=== PATIENT | female | born 1990 | race Caucasian/White ===

== ENCOUNTER 2017-10-19 08:49 | Emergency (ER) | payer MEDICAID ==
[2017-10-19] MEDS ORDERED: Sodium Chloride 0.9% 1,000 ML IV STA (09:06)
--- NOTE | 2017-10-19 09:15 | ED PDOC ---
HPI: Neurologic - General Time Seen by Provider: 10/19/17 08:57 Chief Complaint (Provider): Shaking, twitching to bilat lower extremities Source: patient, EMS Exam Limitations: no limitations - History of Present Illness Timing/Duration: 1-3 hours (morning prior to arrival ) Allergies/Adverse Reactions: Allergies No Known Allergies Allergy (Verified 10/19/17 09:14) Home Medications: Ambulatory Orders Albuterol HFA [Ventolin HFA 90 mcg/actuation (8 g)] 2 puff IH Q4H #1 puff Additional Complaint(s): Vincenzo Whyte is a 27 year old female with a past medical history of Asthma brought to the ED by EMS after experiencing shaking and twitching to her bilateral lower extremities occurring this morning prior to arrival. The patient reports previous similar episodes for which she was seen at [facility] in September with CT of head and work up resulting as negative. The patient is complaining of associated palpitations. She denies headache. PMD: TBD Past Medical History Reviewed: Historical Data, Nursing Documentation, Vital Signs - Medical History PMH: Anxiety, Asthma, Bronchitis, Pneumonia Denies: Chronic Kidney Disease - Surgical History Surgical History: Appendectomy (2005) - Family History Family History: States: Unknown Family Hx - Immunization History Hx Tetanus Toxoid Vaccination: (UTD) Hx Influenza Vaccination: No Hx Pneumococcal Vaccination: No - Home Medications Home Medications: Ambulatory Orders Medication Instructions Recorded Albuterol HFA [Ventolin HFA 90 2 puff IH Q4H #1 puff 01/24/16 mcg/actuation (8 g)] - Allergies Allergies/Adverse Reactions: Allergies Allergy/AdvReac Type Severity Reaction Status Date / Time No Known Allergies Allergy Verified 10/19/17 09:14 Review of Systems ROS Statement: Except As Marked, All Systems Reviewed And Found Negative Cardiovascular: Positive for: Palpitations Neurological: Positive for: Other (shaking and twitching to bilateral lower extremities). Negative for: Headache Physical Exam - Reviewed Nursing Documentation Reviewed: Yes Vital Signs Reviewed: Yes - Physical Exam Appears: Positive for: Non-toxic, No Acute Distress Head Exam: Positive for: ATRAUMATIC, NORMOCEPHALIC Skin: Positive for: Normal Color, Warm, Dry Eye Exam: Positive for: Normal appearance, EOMI ENT: Positive for: Normal ENT Inspection Neck: Positive for: Normal, Painless ROM Cardiovascular/Chest: Positive for: Chest Non Tender, Tachycardia (with regular rhythm) Respiratory: Positive for: Normal Breath Sounds. Negative for: Respiratory Distress Gastrointestinal/Abdominal: Positive for: Normal Exam, Soft. Negative for: Tenderness Extremity: Positive for: Normal ROM. Negative for: Tenderness, Deformity, Swelling Neurologic/Psych: Positive for: Alert, Oriented, Other (shaking, trembling, and twitching to bilateral lower extremities). Negative for: Motor/Sensory Deficits - Laboratory Results Result Diagrams: 10/19/17 09:18 10/19/17 09:18 - ECG O2 Sat by Pulse Oximetry: 99 (RA) Pulse Ox Interpretation: Normal Medical Decision Making Medical Decision Making: Time: 08:57 Impression: * CMP * CBC (with differential) * Ativan 1 mg IVP * NS 1,000 ml IV 100 mls/hr * Reevaluation Scribe Attestation: Documented by Kori Canas, acting as a scribe for Goldy Martin MD. Provider Scribe Attestation: All medical record entries made by the Scribe were at my direction and personally dictated by me. I have reviewed the chart and agree that the record accurately reflects my personal performance of the history, physical exam, medical decision making, and the department course for this patient. I have also personally directed, reviewed, and agree with the discharge instructions and disposition. Disposition - Clinical Impression Clinical Impression: Anxiety attack - Patient ED Disposition Is Patient to be Admitted: No Counseled Patient/Family Regarding: Studies Performed, Diagnosis, Need For Followup, Rx Given - Disposition Referrals: [facility] [Outside] Disposition: Routine/Home Disposition Time: 12:17 Condition: FAIR Instructions: Generalized Anxiety Disorder (ED)
[2017-10-19 09:17] VITALS: TEMP 98
[2017-10-19 09:40] LABS: BASO % 0.5 % (0.0-2.0); EOS # 0.1 K/uL (0.0-0.7); EOS % 1.9 % (0.0-4.0); HEMATOCRIT 40.8 % (34.0-47.0); LYMPH % 25.2 % (20.0-40.0); MEAN CELL VOLUME 91.6 fl (81.0-99.0); MEAN CORPUSCULAR HGB CONC 32.8 g/dL (33.0-37.0); MEAN PLATELET VOLUME 9.9 fl (7.2-11.7); MONO # 0.8 K/uL (0.0-0.8); MONO % 10.3 % (0.0-10.0); NEUT # 4.8 K/uL (1.8-7.0); NEUT % 62.1 % (50.0-75.0); NRBC % 0.1 % (0.0-0.0); RED CELL DISTRIBUTION WIDTH 12.2 % (11.5-14.5); WHITE BLOOD COUNT 7.8 K/uL (4.8-10.8)
[2017-10-19 09:56] LABS: ALKALINE PHOSPHATASE 72 U/L (38-126); ALT/SGPT 27 U/L (9-52); AST/SGOT 21 U/L (14-36); BILIRUBIN,TOTAL 0.6 mg/dl (0.2-1.3); BLOOD UREA NITROGEN 13 mg/dl (7-17); CALCIUM 10.1 mg/dL (8.4-10.2); CARBON DIOXIDE 20 mmol/L (22-30); CHLORIDE 104 mmol/L (98-107); GFR AFRICAN-AMERICAN > 60; GLUCOSE,RANDOM 111 mg/dL (65-105); POTASSIUM 4.2 MMOL/L (3.6-5.0); SODIUM 145 mmol/l (132-148)
[2017-10-19 09:57] LABS: ALB/GLOB RATIO 1.4 (1.0-2.1)
[2017-10-19 10:24] VITALS: RESP 18
[2017-10-19 12:18] VITALS: O2SAT 99
[2017-10-19 12:40] VITALS: BP 112/68; PULSE 82
== END 2017-10-19 12:39 | disposition home or self-care (01) ==
LOC: H.ER 08:49
DX: F41.9 Anxiety disorder, unspecified (principal); J45.909 Unspecified asthma, uncomplicated; R25.3 Fasciculation; R00.2 Palpitations; J20.9 Acute bronchitis, unspecified
CPT/HCPCS: 80053; 81025; 85025; 96374; 99283; J2060; J7040

== ENCOUNTER 2018-01-14 08:59 | Emergency (ER) | payer MEDICAID ==
[2018-01-14 09:32] VITALS: O2SAT 97
--- NOTE | 2018-01-14 10:07 | ED PDOC ---
HPI: Abdomen Time Seen by Provider: 01/14/18 10:02 Chief Complaint (Nursing): Abdominal Pain Additional Complaint(s): 27 YO F w/ h/o of asthma, GERD and anxiety presents to the ED with abdominal pain, vomiting and diarrhea since yesterday. Abdominal pain and diarrhea started around 6:00 pm last night. Patient states she had 4-5 episodes of diarrhea yesterday, semi solid in consistency and had three episodes today. She also had 2 episodes of Non bloody non bilious vomiting. Has had multiple sick contacts with similar symptoms. Has been able to tolerate liquid PO. Patient is sexually active and does not use contraception, denies any vaginal pain or discharge. Denies Fever, chest pain, nausea or vomiting. PMH: GERD, Mild intermittent asthma, Anxiety PSH: Apendectomy Allergy: None SH: 1 pack of cig a week, occasional alcohol use, denies illicit drug use. Admits to unsafe sex PMD: Vanessa Bell M.D. ( [facility]) Past Medical History Vital Signs: Last Vital Signs Temp 97.0 F L 01/14/18 09:31 Pulse 60 01/14/18 09:31 Resp 16 01/14/18 09:31 BP 100/61 01/14/18 09:31 Pulse Ox 97 01/14/18 12:32 - Medical History PMH: Anxiety, Asthma, Bronchitis, Pneumonia Denies: Diabetes, Hepatitis, HIV, HTN, Chronic Kidney Disease, Seizures, Sexually Transmitted Disease - Surgical History Surgical History: Appendectomy (2005) - Family History Family History: States: Unknown Family Hx - Immunization History Hx Tetanus Toxoid Vaccination: (UTD) Hx Influenza Vaccination: No Hx Pneumococcal Vaccination: No - Home Medications Home Medications: Ambulatory Orders Medication Instructions Recorded Albuterol HFA [Ventolin HFA 90 2 puff IH Q4H #1 puff 01/23/ mcg/actuation (8 g)] - Allergies Allergies/Adverse Reactions: Allergies Allergy/AdvReac Type Severity Reaction Status Date / Time No Known Allergies Allergy Verified 10/19/17 09:14 Physical Exam - Physical Exam Appears: Positive for: No Acute Distress Head Exam: Positive for: NORMAL INSPECTION Skin: Positive for: Normal Color, Warm Respiratory: Positive for: Normal Breath Sounds. Negative for: Crackles, Rales , Rhonchi, Wheezing, Respiratory Distress Gastrointestinal/Abdominal: Positive for: Normal Exam, Bowel Sounds, Soft, Tenderness (epigastric tenderness) Back: Negative for: L CVA Tenderness, R CVA Tenderness Neurologic/Psych: Positive for: Alert, proposal manager writer II-XII - Laboratory Results Result Diagrams: 01/14/18 10:45 01/14/18 10:45 - ECG O2 Sat by Pulse Oximetry: 97 - Progress ED Course And Treament: CBC CMP Lipase U preg UA Urine Culture and sensitivity IVF Medical Decision Making Medical Decision Making: CBC, CMP and lipase was WNL - IVF given - Zofran and Pepcid received - U preg : negative - Patient appears to be doing better. Impression is viral gastroenteritis. Disposition - Clinical Impression Clinical Impression: Viral gastroenteritis - Patient ED Disposition Is Patient to be Admitted: No - Disposition Referrals: Faisal Bell MD [Family Provider] - Disposition: Routine/Home Disposition Time: 12:22 Condition: GOOD Additional Instructions: Encouraged hydration . F/U with PMD in 2-3 days Instructions: Viral Gastroenteritis Forms: [facility] ([place]) - POA Present On Arrival: None
[2018-01-14] MEDS ORDERED: Sodium Chloride 0.9% 1,000 ML IV SCH (10:15)
[2018-01-14 10:32] LABS: SQUAMOUS EPITHIAL 1 /hpf (0-5); URINE BILIRUBIN NEGATIVE (NEGATIVE); URINE BLOOD NEGATIVE (NEGATIVE); URINE CLARITY CLEAR (Clear); URINE COLOR STRAW (YELLOW); URINE GLUCOSE (UA) NEG (Normal); URINE LEUKOCYTE ESTERASE NEG Leu/uL (Negative); URINE PROTEIN NEGATIVE (NEGATIVE); URINE UROBILINOGEN 0.2-1.0 mg/dL (0.2-1.0)
[2018-01-14 11:02] LABS: ALB/GLOB RATIO 1.3 (1.0-2.1); ALBUMIN 4.1 g/dL (3.5-5.0); ALT/SGPT 26 U/L (9-52); AST/SGOT 19 U/L (14-36); BLOOD UREA NITROGEN 11 mg/dl (7-17); CALCIUM 9.3 mg/dL (8.4-10.2); GFR AFRICAN-AMERICAN > 60; GFR NON-AFRICAN AMERICAN > 60; LIPASE 63 U/L (23-300)
[2018-01-14 11:20] LABS: BASO % 0.4 % (0.0-2.0); EOS # 0.1 K/uL (0.0-0.7); EOS % 2.4 % (0.0-4.0); HEMOGLOBIN 12.6 g/dL (12.0-16.0); LYMPH # 1.4 K/uL (1.0-4.3); LYMPH % 33.9 % (20.0-40.0); MEAN CELL VOLUME 90.6 fl (81.0-99.0); MEAN CORPUSCULAR HEMOGLOBIN 30.5 pg (27.0-31.0); MEAN CORPUSCULAR HGB CONC 33.7 g/dL (33.0-37.0); MONO # 0.4 K/uL (0.0-0.8); MONO % 10.1 % (0.0-10.0); NEUT # 2.2 K/uL (1.8-7.0); NEUT % 53.2 % (50.0-75.0); NRBC % 0.2 % (0.0-0.0); RBC 4.14 Mil/uL (3.80-5.20); RED CELL DISTRIBUTION WIDTH 12.8 % (11.5-14.5); WHITE BLOOD COUNT 4.2 K/uL (4.8-10.8)
[2018-01-14 18:33] VITALS: BP 112/68; PULSE 81; RESP 14; TEMP 98
== END 2018-01-14 12:33 | disposition home or self-care (01) ==
LOC: H.ER 08:59
DX: A08.4 Viral intestinal infection, unspecified (principal); K21.9 Gastro-esophageal reflux disease without esophagitis
CPT/HCPCS: 80053; 81003; 81025; 83690; 85025; 87086; 87206; 96374; 96375; 99283; J2405; J7040

== ENCOUNTER 2018-02-26 09:01 | Emergency (ER) | payer MEDICAID, OTHER ==
[2018-02-26 09:15] VITALS: TEMP 97; O2SAT 98
[2018-02-26] MEDS ORDERED: Albuterol 0.083% Inhal Sol (2.5 mg/3 mL) UD INH ONE (10:19)
[2018-02-26] MEDS ORDERED: Albuterol 0.083% Inhal Sol (2.5 mg/3 mL) UD ONE (10:29)
--- NOTE | 2018-02-26 10:35 | ED PDOC ---
HPI: SOB/CHF/COPD Time Seen by Provider: 02/26/18 09:05 Chief Complaint (Nursing): Shortness Of Breath Chief Complaint (Provider): Shortness Of Breath History Per: Patient History/Exam Limitations: no limitations Onset/Duration Of Symptoms: Mins (prior to arrival) Current Symptoms Are (Timing): Better Additional Complaint(s): 28 year old female with a history of anxiety and panic attacks presents to the ED shaking and with shortness of breath. Patient reports symptoms are consistent with her previous panic attacks. Denies fever, chills and vomiting. PMD: Dr. Faisal Bell MD Past Medical History Reviewed: Historical Data, Nursing Documentation, Vital Signs Vital Signs: Last Vital Signs Temp 97 F L 02/26/18 09:14 Pulse 72 02/26/18 13:06 Resp 18 02/26/18 13:06 BP 124/76 02/26/18 13:06 Pulse Ox 98 02/26/18 13:06 - Medical History PMH: Anxiety, Asthma, Bronchitis, Pneumonia Denies: Diabetes, Hepatitis, HIV, HTN, Chronic Kidney Disease, Seizures, Sexually Transmitted Disease - Surgical History Surgical History: Appendectomy (2005) - Family History Family History: States: Unknown Family Hx - Social History Current smoker - smoking cessation education provided: Yes (4 cigarettes a day) Ex-Smoker (has not smoked in the last 12 months): No Alcohol: Social Drugs: Denies - Immunization History Hx Tetanus Toxoid Vaccination: (UTD) Hx Influenza Vaccination: No Hx Pneumococcal Vaccination: No - Home Medications Home Medications: Ambulatory Orders Medication Instructions Recorded Albuterol HFA [Ventolin HFA 90 2 puff IH Q4H #1 puff 01/24/16 mcg/actuation (8 g)] - Allergies Allergies/Adverse Reactions: Allergies Allergy/AdvReac Type Severity Reaction Status Date / Time No Known Allergies Allergy Verified 10/19/17 09:14 Review of Systems ROS Statement: Except As Marked, All Systems Reviewed And Found Negative Constitutional: Negative for: Fever, Chills Respiratory: Positive for: Shortness of Breath Gastrointestinal: Negative for: Vomiting Physical Exam - Reviewed Nursing Documentation Reviewed: Yes Vital Signs Reviewed: Yes - Physical Exam Appears: Positive for: Non-toxic, No Acute Distress Head Exam: Positive for: ATRAUMATIC, NORMOCEPHALIC Skin: Positive for: Normal Color, Warm, Dry Eye Exam: Positive for: EOMI, Normal appearance, PERRL Neck: Positive for: Normal, Painless ROM, Supple Cardiovascular/Chest: Positive for: Regular Rate, Rhythm. Negative for: Murmur Respiratory: Positive for: Normal Breath Sounds. Negative for: Respiratory Distress Gastrointestinal/Abdominal: Positive for: Normal Exam, Soft Extremity: Positive for: Normal ROM. Negative for: Deformity Neurologic/Psych: Positive for: Alert, Oriented. Negative for: Motor/Sensory Deficits - Laboratory Results Result Diagrams: 02/26/18 10:34 02/26/18 10:34 - ECG O2 Sat by Pulse Oximetry: 98 (RA) Pulse Ox Interpretation: Normal Medical Decision Making Medical Decision Making: Time; 09:43 Initial Plan: --CMP --CBC with differentials --Albuterol 0.083% 2.5 mg INH --Peak flow pre/post Time: 10:33 --Patient reports an improvement of symptoms after she was given oxygen. pt aware of blood test results and will follow up as an outpatient. Scribe Attestation: Documented by Mery Garber, acting as a scribe for Avtar Gerard MD Provider Scribe Attestation: All medical record entries made by the Scribe were at my direction and personally dictated by me. I have reviewed the chart and agree that the record accurately reflects my personal performance of the history, physical exam, medical decision making, and the department course for this patient. I have also personally directed, reviewed, and agree with the discharge instructions and disposition. Disposition - Clinical Impression Clinical Impression: Anxiety - Patient ED Disposition Is Patient to be Admitted: No Counseled Patient/Family Regarding: Studies Performed, Diagnosis, Need For Followup - Disposition Disposition: Routine/Home Disposition Time: 11:35 Condition: IMPROVED Additional Instructions: follow up with your primary doctor in 1-2 days return to the ED with any worsening or concerning symptoms Instructions: Anxiety, Adult (DC) Forms: [facility] (Swedish)
[2018-02-26 11:01] LABS: BASO % 0.5 % (0.0-2.0); EOS # 0.1 K/uL (0.0-0.7); EOS % 1.9 % (0.0-4.0); HEMOGLOBIN 12.9 g/dL (12.0-16.0); LYMPH # 1.5 K/uL (1.0-4.3); LYMPH % 43.8 % (20.0-40.0); MEAN CELL VOLUME 90.6 fl (81.0-99.0); MEAN CORPUSCULAR HEMOGLOBIN 30.8 pg (27.0-31.0); MONO # 0.4 K/uL (0.0-0.8); MONO % 11.9 % (0.0-10.0); NEUT # 1.4 K/uL (1.8-7.0); NEUT % 41.9 % (50.0-75.0); NRBC % 0.1 % (0.0-0.0); RBC 4.19 Mil/uL (3.80-5.20); RED CELL DISTRIBUTION WIDTH 12.2 % (11.5-14.5); WHITE BLOOD COUNT 3.3 K/uL (4.8-10.8)
[2018-02-26 11:06] LABS: ALB/GLOB RATIO 1.2 (1.0-2.1); ALBUMIN 4.4 g/dL (3.5-5.0); ALT/SGPT 32 U/L (9-52); AST/SGOT 20 U/L (14-36); GFR AFRICAN-AMERICAN > 60; GFR NON-AFRICAN AMERICAN > 60
[2018-02-26 11:15] LABS: BLOOD UREA NITROGEN 7 mg/dl (7-17); CALCIUM 9.2 mg/dL (8.4-10.2)
[2018-02-26 13:07] VITALS: BP 124/76; PULSE 72; RESP 18
== END 2018-02-26 12:53 | disposition home or self-care (01) ==
LOC: H.ER 09:01
DX: F41.9 Anxiety disorder, unspecified (principal); F17.210 Nicotine dependence, cigarettes, uncomplicated; R06.02 Shortness of breath

== ENCOUNTER 2018-05-02 09:54 | Emergency (ER) | payer SELFPAY ==
[2018-05-02 10:03] VITALS: BMI 23.1
[2018-05-02 10:05] VITALS: BP 109/72; PULSE 79; RESP 16; TEMP 98.3; O2SAT 98
[2018-05-02] MEDS ORDERED: Albuterol-Ipratrop 3 mg / 0.5 (3 ml) UD INH STA (10:57)
[2018-05-02] MEDS ORDERED: Albuterol-Ipratrop 3 mg / 0.5 (3 ml) UD ONE (11:10)
--- NOTE | 2018-05-02 13:09 | ED PDOC ---
History of Present Illness History of Present Illness: 28 year old female with a history of asthma presents to the ED with asthma exacerbation onset a week associated intermittent wheezing and shortness of breath. She reports her asthma is exacerbated by the blowing fan at work. Patient decided not to go to work today because she was experiencing shortness of breath. She uses her albuterol pump at home as indicated. Patient denies chest pain, fever, or any other medical complaints. PMD: Dr. Faisal Bell HPI: Influenza Time Seen by Provider: 05/02/18 10:18 Chief Complaint: Cough, Cold, Congestion Chief Complaint (Provider): Asthma History Per: Patient Exam Limitations: no limitations Onset/Duration Of Symptoms: Days (x1 week) Past Medical History Reviewed: Historical Data, Nursing Documentation, Vital Signs Vital Signs: Last Vital Signs Temp 98.3 F 05/02/18 10:04 Pulse 79 05/02/18 10:04 Resp 16 05/02/18 10:04 BP 109/72 05/02/18 10:04 Pulse Ox 98 05/02/18 10:04 - Medical History PMH: Anxiety, Asthma, Bronchitis, Pneumonia Denies: Diabetes, Hepatitis, HIV, HTN, Chronic Kidney Disease, Seizures, Sexually Transmitted Disease - Surgical History Surgical History: Appendectomy (2005) - Family History Family History: States: Unknown Family Hx - Social History Current smoker - smoking cessation education provided: Yes (Light smoker <10 cigarettes a day) Ex-Smoker (has not smoked in the last 12 months): No Alcohol: Other (yes) Drugs: Denies - Immunization History Hx Tetanus Toxoid Vaccination: (UTD) Hx Influenza Vaccination: No Hx Pneumococcal Vaccination: No - Home Medications Home Medications: Ambulatory Orders Medication Instructions Recorded Albuterol HFA [Ventolin HFA 90 2 puff IH Q4H #1 puff 03/14/16 mcg/actuation (8 g)] Albuterol HFA [Ventolin HFA 90 2 puff IH Q4 PRN #1 inh 05/02/18 mcg/actuation (8 g)] Fluticasone/Salmeterol 250/50 1 puff IH Q12 #1 inh 05/02/18 [Advair Diskus] Prednisone 50 mg PO DAILY #5 tablet 05/02/18 - Allergies Allergies/Adverse Reactions: Allergies Allergy/AdvReac Type Severity Reaction Status Date / Time No Known Allergies Allergy Verified 10/19/17 09:14 Review of Systems ROS Statement: Except As Marked, All Systems Reviewed And Found Negative Constitutional: Negative for: Fever Cardiovascular: Negative for: Chest Pain Respiratory: Positive for: Wheezing Physical Exam - Reviewed Nursing Documentation Reviewed: Yes Vital Signs Reviewed: Yes - Physical Exam Appears: Positive for: Non-toxic, No Acute Distress Head Exam: Positive for: ATRAUMATIC, NORMOCEPHALIC Skin: Positive for: Normal Color, Warm, Dry Eye Exam: Positive for: Normal appearance, EOMI, PERRL ENT: Positive for: Normal ENT Inspection Neck: Positive for: Normal, Painless ROM, Supple Cardiovascular/Chest: Positive for: Regular Rate, Rhythm. Negative for: Murmur Respiratory: Positive for: Normal Breath Sounds. Negative for: Respiratory Distress Gastrointestinal/Abdominal: Positive for: Normal Exam, Soft. Negative for: Tenderness Back: Positive for: Normal Inspection Extremity: Positive for: Normal ROM (upper and lower extremities). Negative for : Pedal Edema, Deformity Neurologic/Psych: Positive for: Alert, Oriented (x3). Negative for: Motor/ Sensory Deficits Medical Decision Making Medical Decision Making: Time: 10:57 Impression: Asthma exacerbation Initial Plan: --EKG --Duoneb 3mg/0.5 mg (3ml) UD 3ml INH --prednisoneTab 60 mg PO --Peak flow pre/post EKG improved after administering medication. On evaluation, patient is doing much better and states she would like to go home. Patient medically cleared for discharge home and advised to follow up with PMD in 1-2 days. Scribe Attestation: Documented by Elida Canas, acting as a scribe for Bertha Monroy MD Provider Scribe Attestation: All medical record entries made by the Scribe were at my direction and personally dictated by me. I have reviewed the chart and agree that the record accurately reflects my personal performance of the history, physical exam, medical decision making, and the department course for this patient. I have also personally directed, reviewed, and agree with the discharge instructions and disposition. - ECG O2 Sat by Pulse Oximetry: 98 (RA) Pulse Ox Interpretation: Normal - Progress Re-evaluation Time: 13:00 Condition: Re-examined, Improved Disposition - Clinical Impression Clinical Impression: Asthma attack - Patient ED Disposition Is Patient to be Admitted: No Counseled Patient/Family Regarding: Studies Performed, Diagnosis, Need For Followup - Disposition Referrals: Faisal Bell MD [Family Provider] - Disposition: Routine/Home Disposition Time: 13:07 Condition: GOOD Additional Instructions: take your medications as instructed. follow up with your PCP in 2-3 days. Prescriptions: Albuterol HFA [Ventolin HFA 90 mcg/actuation (8 g)] 2 puff IH Q4 PRN #1 inh PRN Reason: Wheezing Fluticasone/Salmeterol 250/50 [Advair Diskus] 1 puff IH Q12 #1 inh Prednisone 50 mg PO DAILY #5 tablet Instructions: Asthma in Adults
--- NOTE | 2018-05-03 08:31 | CARD ---
APPROVED REPORT EKG Measurement Heart [id number] CT [id number] <Conclusion> Normal sinus rhythm with sinus arrhythmia Normal ECG
== END 2018-05-02 13:18 | disposition home or self-care (01) ==
LOC: H.ER 09:54
DX: J45.901 Unspecified asthma with (acute) exacerbation (principal); F41.9 Anxiety disorder, unspecified; F17.210 Nicotine dependence, cigarettes, uncomplicated

== ENCOUNTER 2018-05-08 10:53 | Emergency (ER) | payer OTHER ==
[2018-05-08 10:58] VITALS: BMI 22.3
[2018-05-08 10:59] VITALS: BP 107/65; PULSE 74; RESP 16; TEMP 98.2; O2SAT 100
--- NOTE | 2018-05-08 11:50 | ED PDOC ---
HPI: General Adult Time Seen by Provider: 05/08/18 11:40 Chief Complaint (Nursing): Rib Injury Chief Complaint (Provider): back pain History Per: Patient (28 y/o female here with lower back pain radiating to upper thighs associated with intermittent numbness. Notes pain worse after recent asthma exacerbation last week. Notes additional exacerbation with lifting pot after cooking. Additional bilateral chest wall tenderness noted after asthma exacerbation. ) Past Medical History Reviewed: Historical Data, Nursing Documentation, Vital Signs Vital Signs: Last Vital Signs Temp 98.2 F 05/08/18 10:58 Pulse 74 05/08/18 10:58 Resp 16 05/08/18 10:58 BP 107/65 05/08/18 10:58 Pulse Ox 100 05/08/18 11:50 - Medical History PMH: Anxiety, Asthma, Bronchitis, Pneumonia Denies: Diabetes, Hepatitis, HIV, HTN, Chronic Kidney Disease, Seizures, Sexually Transmitted Disease - Surgical History Surgical History: Appendectomy (2005) - Family History Family History: States: Unknown Family Hx - Immunization History Hx Tetanus Toxoid Vaccination: (UTD) Hx Influenza Vaccination: No Hx Pneumococcal Vaccination: No - Home Medications Home Medications: Ambulatory Orders Medication Instructions Recorded Albuterol HFA [Ventolin HFA 90 2 puff IH Q4H #1 puff //16 mcg/actuation (8 g)] Albuterol HFA [Ventolin HFA 90 2 puff IH Q4 PRN #1 inh 05/02/18 mcg/actuation (8 g)] Fluticasone/Salmeterol 250/50 1 puff IH Q12 #1 inh 05/02/18 [Advair Diskus] Prednisone 50 mg PO DAILY #5 tablet 05/02/18 Naproxen 375 mg PO Q8 PRN #21 tablet 05/08/18 - Allergies Allergies/Adverse Reactions: Allergies Allergy/AdvReac Type Severity Reaction Status Date / Time No Known Allergies Allergy Verified 10/19/17 09:14 Review of Systems ROS Statement: Except As Marked, All Systems Reviewed And Found Negative Physical Exam - Reviewed Nursing Documentation Reviewed: Yes Vital Signs Reviewed: Yes - Physical Exam Appears: Positive for: Well, Non-toxic, No Acute Distress Head Exam: Positive for: ATRAUMATIC, NORMAL INSPECTION, NORMOCEPHALIC Skin: Positive for: Normal Color, Warm, DRY Eye Exam: Positive for: EOMI, Normal appearance, PERRL ENT: Positive for: Normal ENT Inspection Neck: Positive for: Normal, Painless ROM Cardiovascular/Chest: Positive for: Regular Rate, Rhythm Respiratory: Positive for: CNT, Normal Breath Sounds Gastrointestinal/Abdominal: Positive for: Normal Exam, Soft Back: Positive for: Normal Inspection, Vertebral Tenderness (paralumbar tenderness bilateral) Extremity: Positive for: Normal ROM Neurologic/Psych: Positive for: Alert, Oriented - Laboratory Results Urine POC: Negative - ECG O2 Sat by Pulse Oximetry: 100 Disposition - Clinical Impression Clinical Impression: Back pain, Sciatica - Patient ED Disposition Is Patient to be Admitted: No - Disposition Disposition: Routine/Home Disposition Time: 11:51 Condition: STABLE Prescriptions: Naproxen 375 mg PO Q8 PRN #21 tablet PRN Reason: Pain, Moderate (4-7) Instructions: Sciatica (DC) Forms: [facility] School/Work Excuse
== END 2018-05-08 12:11 | disposition home or self-care (01) ==
LOC: H.ER 10:53
DX: M54.30 Sciatica, unspecified side (principal); F41.9 Anxiety disorder, unspecified

== ENCOUNTER 2018-05-28 08:33 | Emergency (ER) | payer OTHER ==
[2018-05-28 08:36] VITALS: BMI 23.1
[2018-05-28] MEDS ORDERED: Albuterol-Ipratrop 3 mg / 0.5 (3 ml) UD IH STA (09:45)
--- NOTE | 2018-05-28 10:18 | ED PDOC ---
HPI: General Adult Time Seen by Provider: 05/28/18 08:50 Chief Complaint (Nursing): Dental Pain Chief Complaint (Provider): Dental Pain and Cold History Per: Patient History/Exam Limitations: no limitations Onset/Duration Of Symptoms: Days (2x) Current Symptoms Are (Timing): Still Present Additional Complaint(s): 28 year old female with a history of asthma presents to the ED complaining of top right tooth pain and cold onset for 2 days. Patient states she used Oral Gel for her tooth and has sore throat. Her appetite has decreased also. She states she has watery eyes, sweats, nasal congestion, cough and is wheezing. She denies chest pain or abdominal pain. PMD: Faisal Bell Past Medical History Reviewed: Historical Data, Nursing Documentation, Vital Signs Vital Signs: Last Vital Signs Temp 98.9 F 05/28/18 08:36 Pulse 98 H 05/28/18 08:36 Resp 16 05/28/18 08:36 BP 106/52 L 05/28/18 08:36 Pulse Ox 96 05/28/18 10:25 - Medical History PMH: Anxiety, Asthma, Bronchitis, Pneumonia Denies: Diabetes, Hepatitis, HIV, HTN, Chronic Kidney Disease, Seizures, Sexually Transmitted Disease - Surgical History Surgical History: Appendectomy (2005) - Family History Family History: States: Unknown Family Hx - Social History Current smoker - smoking cessation education provided: Yes (Light Smoker < 10 Cigarettes Daily) Alcohol: Social Drugs: Denies - Immunization History Hx Tetanus Toxoid Vaccination: (UTD) Hx Influenza Vaccination: No Hx Pneumococcal Vaccination: No - Home Medications Home Medications: Ambulatory Orders Medication Instructions Recorded Albuterol HFA [Ventolin HFA 90 2 puff IH Q4H #1 puff //16 mcg/actuation (8 g)] Albuterol HFA [Ventolin HFA 90 2 puff IH Q4 PRN #1 inh 05/02/18 mcg/actuation (8 g)] Fluticasone/Salmeterol 250/50 1 puff IH Q12 #1 inh 05/02/18 [Advair Diskus] Prednisone 50 mg PO DAILY #5 tablet 05/02/18 Naproxen 375 mg PO Q8 PRN #21 tablet 05/08/18 Albuterol Sulfate [Proair Hfa] 0.09 mg IH Q6H PRN #2 inh 05/28/18 Ibuprofen [Motrin] 600 mg PO TID 7 Days tab 05/28/18 Penicillin VK [Penicillin VK Tab] 500 mg PO QID 7 Days tab 05/28/18 predniSONE [predniSONE Tab] 20 mg PO BID 5 Days tab 05/28/18 - Allergies Allergies/Adverse Reactions: Allergies Allergy/AdvReac Type Severity Reaction Status Date / Time No Known Allergies Allergy Verified 10/19/17 09:14 Review of Systems ROS Statement: Except As Marked, All Systems Reviewed And Found Negative Constitutional: Positive for: Sweats ENT: Positive for: Nose Congestion, Mouth Pain (top right tooth pain), Throat Pain Cardiovascular: Negative for: Chest Pain Respiratory: Positive for: Cough, Wheezing Gastrointestinal: Negative for: Abdominal Pain Physical Exam - Reviewed Nursing Documentation Reviewed: Yes Vital Signs Reviewed: Yes - Physical Exam Appears: Positive for: Non-toxic, No Acute Distress (poor hygiene) Head Exam: Positive for: ATRAUMATIC, NORMAL INSPECTION, NORMOCEPHALIC Skin: Positive for: Normal Color, Warm, Dry Eye Exam: Positive for: EOMI, Normal appearance, PERRL ENT: Positive for: Nasal Congestion, Other (no abscess or fluctuance). Negative for: Normal ENT Inspection (2nd molar partially missing, mild swelling and tenderness), Pharyngeal Erythema Neck: Positive for: Normal, Painless ROM, Supple. Negative for: Decreased ROM Cardiovascular/Chest: Positive for: Regular Rate, Rhythm. Negative for: Murmur Respiratory: Positive for: Wheezing (mild) Gastrointestinal/Abdominal: Positive for: Normal Exam, Bowel Sounds, Soft. Negative for: Tenderness, Guarding, Rebound Back: Positive for: Normal Inspection. Negative for: L CVA Tenderness, R CVA Tenderness Extremity: Positive for: Normal ROM. Negative for: Tenderness, Pedal Edema, Deformity Neurologic/Psych: Positive for: Alert, Oriented (x3) - ECG O2 Sat by Pulse Oximetry: 96 (RA) Pulse Ox Interpretation: Normal - Progress ED Course And Treament: 1125: Stable. AAOx3. Pain free. Breathing well. Fu with pcp. Rx antibiotics for toothache. Medical Decision Making Medical Decision Making: Time: 944 Initial Impression: tooth pain, bronchitis Initial Plan: --ED Urine --Duoneb 3mg/0.5mg (3ml) --Motrin Tab 600mg PO --predniSONE Tab 60mg --Peak Flow Pre/Post TX --Reevaluation Scribe Attestation: Documented by Paul Reynoso, acting as a scribe for Samm Salas MD Provider Scribe Attestation: All medical record entries made by the Scribe were at my direction and personally dictated by me. I have reviewed the chart and agree that the record accurately reflects my personal performance of the history, physical exam, medical decision making, and the department course for this patient. I have also personally directed, reviewed, and agree with the discharge instructions and disposition. Disposition - Clinical Impression Clinical Impression: Dental caries, Bronchitis - Patient ED Disposition Is Patient to be Admitted: No Counseled Patient/Family Regarding: Diagnosis, Need For Followup, Rx Given - Disposition Referrals: [facility] [place] [Outside] - 05/29/18 Disposition: Routine/Home Disposition Time: 11:26 Condition: STABLE Additional Instructions: Return if not better in 3 days. Prescriptions: Albuterol Sulfate [Proair Hfa] 0.09 mg IH Q6H PRN #2 inh PRN Reason: Wheezing Ibuprofen [Motrin] 600 mg PO TID 7 Days tab Penicillin VK [Penicillin VK Tab] 500 mg PO QID 7 Days tab predniSONE [predniSONE Tab] 20 mg PO BID 5 Days tab Instructions: Acute Bronchitis, Dental Pain (DC) Forms: [employer] (Citizen Of [place]), [facility] ED School/Work Excuse
[2018-05-28 11:52] VITALS: BP 117/67; PULSE 90; RESP 18; TEMP 99.2; O2SAT 98
== END 2018-05-28 11:51 | disposition home or self-care (01) ==
LOC: H.ER 08:33
DX: K02.9 Dental caries, unspecified (principal); J40 Bronchitis, not specified as acute or chronic; F17.210 Nicotine dependence, cigarettes, uncomplicated

== ENCOUNTER 2018-07-17 08:40 | Emergency (ER) | payer OTHER ==
[2018-07-17 08:49] VITALS: BMI 22.3
[2018-07-17 08:50] VITALS: O2SAT 99
--- NOTE | 2018-07-17 09:41 | ED PDOC ---
HPI: General Adult Time Seen by Provider: 07/17/18 09:05 Chief Complaint (Nursing): Anxiety Chief Complaint (Provider): Anxious, ribs pain History Per: Patient History/Exam Limitations: no limitations Onset/Duration Of Symptoms: Days Have you had recent travel within the past 21 days to any of the following countries: [place], [place], [place] or [place]?: No Current Symptoms Are (Timing): Still Present Additional History Per: Patient Additional Complaint(s): 28yo female, history of asthma, anxiety, comes to ER for evaluation stating she stopped smoking 1 week ago and for the past 2 days, has been feeling increasingly anxious and has bilateral "lower ribs pain". She denies any trauma or injuries to the area. She denies any fever, chills, cough, vomiting. No other complaints. PMD: Dr. Bell Past Medical History Reviewed: Historical Data, Nursing Documentation, Vital Signs Vital Signs: Last Vital Signs Temp 97.9 F 07/17/18 11:56 Pulse 62 07/17/18 11:56 Resp 19 07/17/18 11:56 BP 101/64 07/17/18 11:56 Pulse Ox 99 07/17/18 11:56 - Medical History PMH: Anxiety, Asthma, Bronchitis, Pneumonia Denies: Diabetes, Hepatitis, HIV, HTN, Chronic Kidney Disease, Seizures, Sexually Transmitted Disease - Surgical History Surgical History: Appendectomy (2005) - Family History Family History: States: Unknown Family Hx - Immunization History Hx Tetanus Toxoid Vaccination: (UTD) Hx Influenza Vaccination: No Hx Pneumococcal Vaccination: No - Home Medications Home Medications: Ambulatory Orders Medication Instructions Recorded Albuterol HFA [Ventolin HFA 90 2 puff IH Q4H #1 puff //16 mcg/actuation (8 g)] Albuterol HFA [Ventolin HFA 90 2 puff IH Q4 PRN #1 inh 05/02/18 mcg/actuation (8 g)] Fluticasone/Salmeterol 250/50 1 puff IH Q12 #1 inh 05/02/18 [Advair Diskus] Prednisone 50 mg PO DAILY #5 tablet 05/02/18 Naproxen 375 mg PO Q8 PRN #21 tablet 05/08/18 Albuterol Sulfate [Proair Hfa] 0.09 mg IH Q6H PRN #2 inh 05/28/18 Ibuprofen [Motrin] 600 mg PO TID 7 Days tab 05/28/18 Penicillin VK [Penicillin VK Tab] 500 mg PO QID 7 Days tab 05/28/18 predniSONE [predniSONE Tab] 20 mg PO BID 5 Days tab 05/28/18 ALPRAZolam [Xanax] 0.25 mg PO HS #5 tab 07/17/18 - Allergies Allergies/Adverse Reactions: Allergies Allergy/AdvReac Type Severity Reaction Status Date / Time No Known Allergies Allergy Verified 07/17/18 08:57 Review of Systems ROS Statement: Except As Marked, All Systems Reviewed And Found Negative Constitutional: Negative for: Fever, Chills Cardiovascular: Positive for: Other (ribs pain). Negative for: Chest Pain Respiratory: Negative for: Shortness of Breath Gastrointestinal: Negative for: Vomiting Psych: Positive for: Anxiety Physical Exam - Reviewed Nursing Documentation Reviewed: Yes Vital Signs Reviewed: Yes - Physical Exam Appears: Positive for: Non-toxic Head Exam: Positive for: ATRAUMATIC, NORMAL INSPECTION, NORMOCEPHALIC Skin: Positive for: Normal Color, Warm, DRY Eye Exam: Positive for: Normal appearance Neck: Positive for: Normal, Painless ROM, Supple Cardiovascular/Chest: Positive for: Regular Rate, Rhythm, Chest Non Tender Respiratory: Positive for: Normal Breath Sounds. Negative for: Wheezing Pulses-Radial (L): 2+ Pulses-Radial (R): 2+ Gastrointestinal/Abdominal: Positive for: Normal Exam Back: Positive for: Normal Inspection Extremity: Positive for: Normal ROM. Negative for: Pedal Edema Neurologic/Psych: Positive for: Alert, Oriented. Negative for: Motor/Sensory Deficits - ECG ECG: Positive for: Interpreted By Me, Viewed By Me ECG Rhythm: Positive for: Normal QRS, Normal ST Segment, Sinus Rhythm Rate: 83 O2 Sat by Pulse Oximetry: 99 (RA) Pulse Ox Interpretation: Normal Medical Decision Making Medical Decision Making: Impression: Anxiety, ribs pain Differential: Musculoskeletal pain, less likely pulmonary embolism Plan: * EKG * Chest x-ray * Xanax 0.25mg PO Scribe Attestation: Documented by Latanya Trammell, acting as a scribe for Bertha Monroy MD Provider Scribe Attestation: All medical record entries made by the Scribe were at my direction and personally dictated by me. I have reviewed the chart and agree that the record accurately reflects my personal performance of the history, physical exam, medical decision making, and the department course for this patient. I have also personally directed, reviewed, and agree with the discharge instructions and disposition. Disposition - Clinical Impression Clinical Impression: Anxiety disorder, Rib pain - Patient ED Disposition Is Patient to be Admitted: No Doctor Will See Patient In The: Office Counseled Patient/Family Regarding: Studies Performed, Diagnosis, Need For Followup - Disposition Referrals: [facility] [Outside] Disposition: Routine/Home Disposition Time: 11:50 Condition: GOOD Additional Instructions: Take your medications as instructed. Follow up with your PCP in 2-3 days. Prescriptions: ALPRAZolam [Xanax] 0.25 mg PO HS #5 tab Instructions: Anxiety, Adult (DC) Forms: [facility] ED School/Work Excuse
--- NOTE | 2018-07-17 11:29 | RAD ---
Date of service: 07/17/2018 HISTORY: rib pain COMPARISON: 01/24/2016 TECHNIQUE: Chest PA and lateral FINDINGS: LUNGS: No active pulmonary disease. PLEURA: No significant pleural effusion identified. No pneumothorax apparent. CARDIOVASCULAR: Normal. OSSEOUS STRUCTURES: No significant abnormalities. On this exam no gross rib pathology appreciated. VISUALIZED UPPER ABDOMEN: Normal. OTHER FINDINGS: None. IMPRESSION: No active disease. No interval pathology noted
[2018-07-17 11:57] VITALS: BP 101/64; RESP 19; TEMP 97.9
--- NOTE | 2018-07-17 18:17 | CARD ---
APPROVED REPORT Date of service: 07/17/2018 <Conclusion> Normal sinus rhythm with sinus arrhythmia Normal ECG
[2018-07-19 16:36] VITALS: PULSE 83
== END 2018-07-17 11:57 | disposition home or self-care (01) ==
LOC: H.ER 08:40
DX: F41.9 Anxiety disorder, unspecified (principal)

== ENCOUNTER 2018-10-07 09:33 | Emergency (ER) | payer OTHER ==
[2018-10-07 09:33] VITALS: BMI 22.3
[2018-10-07 09:39] VITALS: BP 107/71; PULSE 73; RESP 16; TEMP 98.4; O2SAT 99
--- NOTE | 2018-10-07 10:59 | ED PDOC ---
Syncope/Near Syncope/Dizziness Time Seen by Provider: 10/07/18 10:11 Chief Complaint (Nursing): Dizziness/Lightheaded Chief Complaint (Provider): anxiety, cough History Per: Patient History/Exam Limitations: no limitations Onset/Duration Of Symptoms: Days Current Symptoms Are (Timing): Gone Now Associated Symptoms Preceding Syncopal Episode: Other (had dizziness last night when lying down to sleep, now resolved. ) Possible Causative Factor(s): denies: New Medications, Recent Alcohol Fall Associated With With Symptoms: No Additional Complaint(s): Pt. is a 28 y/o Female, with h/o anxiety who reports mild cough x 2 d. Pt. reports last night after coughing, she felt dizzy described as lightheaded, ocurred at night when lying down for sleep. Pt. reports she started to feel anxious, she was worried her asthma would flare up and she would "get worse". Pt. reports feeling slightly anxious at present, no cp, no sob. Past Medical History Vital Signs: Last Vital Signs Temp 98.4 F 10/07/18 09:38 Pulse 73 10/07/18 09:38 Resp 16 10/07/18 09:38 BP 107/71 10/07/18 09:38 Pulse Ox 99 10/07/18 09:38 - Medical History PMH: Anxiety, Asthma, Bronchitis, Pneumonia Denies: Diabetes, Hepatitis, HIV, HTN, Chronic Kidney Disease, Seizures, Sexually Transmitted Disease - Surgical History Surgical History: Appendectomy (2005) - Family History Family History: States: Unknown Family Hx - Immunization History Hx Tetanus Toxoid Vaccination: (UTD) Hx Influenza Vaccination: No Hx Pneumococcal Vaccination: No - Home Medications Home Medications: Ambulatory Orders Medication Instructions Recorded RX: Albuterol HFA [Ventolin HFA 90 2 puff IH Q4H #1 puff 03/14/16 mcg/actuation (8 g)] Fluticasone/Salmeterol 250/50 1 puff IH Q12 #1 inh 05/02/18 [Advair Diskus] RX: Albuterol HFA [Ventolin HFA 90 2 puff IH Q4 PRN #1 inh 05/02/18 mcg/actuation (8 g)] RX: Prednisone 50 mg PO DAILY #5 tablet 05/02/18 RX: Naproxen 375 mg PO Q8 PRN #21 tablet 05/08/18 Albuterol Sulfate [Proair Hfa] 0.09 mg IH Q6H PRN #2 inh 05/28/18 Ibuprofen [Motrin] 600 mg PO TID 7 Days tab 05/28/18 RX: Penicillin VK [Penicillin VK 500 mg PO QID 7 Days tab 05/28/18 Tab] RX: predniSONE [predniSONE Tab] 20 mg PO BID 5 Days tab 05/28/18 ALPRAZolam [Xanax] 0.25 mg PO HS #5 tab 07/17/18 - Allergies Allergies/Adverse Reactions: Allergies Allergy/AdvReac Type Severity Reaction Status Date / Time No Known Allergies Allergy Verified 07/17/18 08:57 Review of Systems Constitutional: Positive for: Fever (tactile fever yesterday). Negative for: Chills Cardiovascular: Negative for: Chest Pain, Palpitations, Light Headedness Respiratory: Positive for: Cough. Negative for: SOB with Exertion, Pleuritic Pain, Wheezing Neurological: Negative for: Weakness, Numbness Psych: Positive for: Anxiety Physical Exam - Reviewed Nursing Documentation Reviewed: Yes Vital Signs Reviewed: Yes - Physical Exam Appears: Positive for: Well, Non-toxic, No Acute Distress Head Exam: Positive for: ATRAUMATIC Skin: Positive for: Normal Color, Warm, Dry. Negative for: Diaphoresis Eye Exam: Positive for: Normal appearance, EOMI, PERRL ENT: Positive for: Normal ENT Inspection Neck: Positive for: Normal, Supple. Negative for: Painless ROM Cardiovascular/Chest: Positive for: Regular Rate, Rhythm Respiratory: Positive for: Normal Breath Sounds. Negative for: Wheezing Neurologic/Psych: Positive for: Alert, suit attendant II-XII, Oriented. Negative for: Motor/Sensory Deficits - Laboratory Results Urine POC: Negative - ECG O2 Sat by Pulse Oximetry: 99 Pulse Ox Interpretation: Normal - Radiology X-Ray: Interpreted by Me X-Ray Interpretation: No Acute Disease Medical Decision Making Medical Decision Making: EKG, U. preg, CXR ordered. u. preg neg CXR: napd; as read by me. Pt. well appearing, ambulating around ED, no dizziness, normal neuro exam. Pt. has albuterol at home will use as needed. Disposition - Clinical Impression Clinical Impression: Dizziness - Patient ED Disposition Is Patient to be Admitted: No Counseled Patient/Family Regarding: Studies Performed, Diagnosis, Need For Followup - Disposition Referrals: [facility] [Outside] Disposition: Routine/Home Disposition Time: 12:26 Condition: STABLE Instructions: Dizziness, Nonvertigo, (DC) Forms: [employer] (Martiniquais)
--- NOTE | 2018-10-07 14:30 | RAD ---
Date of service: 10/07/2018 HISTORY: Dizziness. COMPARISON: 07/17/2018 TECHNIQUE: Chest PA and lateral FINDINGS: LUNGS: No active pulmonary disease. PLEURA: No significant pleural effusion identified. No pneumothorax apparent. CARDIOVASCULAR: No aortic atherosclerotic calcification present. Normal cardiac size. No pulmonary vascular congestion. OSSEOUS STRUCTURES: No significant abnormalities. VISUALIZED UPPER ABDOMEN: Normal. OTHER FINDINGS: None. IMPRESSION: No active disease. No significant interval change compared to the prior examination(s).
--- NOTE | 2018-10-07 19:05 | CARD ---
APPROVED REPORT Date of service: 10/07/2018 EKG Measurement Heart [id number] <Conclusion> Normal sinus rhythm with sinus arrhythmia Normal ECG
== END 2018-10-07 12:35 | disposition home or self-care (01) ==
LOC: H.ER 09:33
DX: R42 Dizziness and giddiness (principal); J45.909 Unspecified asthma, uncomplicated

== ENCOUNTER 2019-02-11 01:54 | Emergency (ER) | payer SELFPAY ==
[2019-02-11 01:55] VITALS: BMI 22.3
[2019-02-11 02:15] VITALS: RESP 18; O2SAT 98
[2019-02-11] MEDS ORDERED: Sodium Chloride 0.9% 1,000 ML IV STA (02:57)
--- NOTE | 2019-02-11 03:00 | ED PDOC ---
HPI:Nausea, Vomiting, Diarrhea Time Seen by Provider: 02/11/19 02:22 Chief Complaint (Nursing): GI Problem Chief Complaint (Provider): vomiting, diarrhea History Per: Patient History/Exam Limitations: no limitations Onset/Duration Of Symptoms: Hrs (3) Current Symptoms Are (Timing): Still Present Additional Complaint(s): 29 y/o female presents for evaluation of 3-4 episodes of vomiting and diarrhea since midnight. Associated upper abdominal pain. Denies fever, cough, congestion, chest pain, shortness of breath, palpitations, urinary symptoms, recent travel, sick contacts. Patient states she had 2 teeth extracted yesterday, took two Clindamycin tablets at 17:30. Past Medical History Reviewed: Historical Data, Nursing Documentation, Vital Signs Vital Signs: Last Vital Signs Temp 97.3 F L 02/11/19 02:08 Pulse 106 H 02/11/19 02:08 Resp 18 02/11/19 02:08 BP 147/78 02/11/19 02:08 Pulse Ox 98 02/11/19 02:08 - Medical History PMH: Anxiety, Asthma, Bronchitis, Pneumonia Denies: Diabetes, Hepatitis, HIV, HTN, Chronic Kidney Disease, Seizures, Sexually Transmitted Disease - Surgical History Surgical History: Appendectomy (2005) - Family History Family History: States: Unknown Family Hx - Immunization History Hx Tetanus Toxoid Vaccination: (UTD) Hx Influenza Vaccination: No Hx Pneumococcal Vaccination: No - Home Medications Home Medications: Ambulatory Orders Medication Instructions Recorded Albuterol HFA [Ventolin HFA 90 2 puff IH Q4 PRN #1 inh 05/02/18 mcg/actuation (8 g)] ALPRAZolam [Xanax] 0.25 mg PO HS #5 tab 07/17/18 Famotidine [Pepcid] 20 mg PO BID #14 tab 02/11/19 Ondansetron ODT [Zofran ODT] 4 mg PO Q8 PRN #10 odt 02/11/19 - Allergies Allergies/Adverse Reactions: Allergies Allergy/AdvReac Type Severity Reaction Status Date / Time No Known Allergies Allergy Verified 07/17/18 08:57 Review of Systems ROS Statement: Except As Marked, All Systems Reviewed And Found Negative Gastrointestinal: Positive for: Nausea, Vomiting, Abdominal Pain, Diarrhea Physical Exam - Reviewed Nursing Documentation Reviewed: Yes Vital Signs Reviewed: Yes - Physical Exam Appears: Positive for: Well, Non-toxic, No Acute Distress Head Exam: Positive for: ATRAUMATIC, NORMAL INSPECTION, NORMOCEPHALIC Skin: Positive for: Normal Color Eye Exam: Positive for: Normal appearance ENT: Positive for: Normal ENT Inspection Cardiovascular/Chest: Positive for: Regular Rate, Rhythm Respiratory: Positive for: Normal Breath Sounds Gastrointestinal/Abdominal: Positive for: Bowel Sounds, Soft, Tenderness (epigastric) Back: Positive for: Normal Inspection Extremity: Positive for: Normal ROM Neurological/Psych: Positive for: Awake, Alert, Oriented (x3) - Laboratory Results Result Diagrams: 02/11/19 03:43 02/11/19 03:43 - ECG O2 Sat by Pulse Oximetry: 98 - Progress ED Course And Treament: -upreg -udip -cbc -cmp -lipase -IV NS bolus -IV zofran -IV pepcid On re-eval, patient states she is feeling better. Tolerating PO Patient educated findings, discharged with rx Zofran, pepcid Advised follow up PMD within 2-3 days Increase fluid intake, BRAT diet Return precautions given Disposition - Clinical Impression Clinical Impression: Gastroenteritis - Patient ED Disposition Is Patient to be Admitted: No Counseled Patient/Family Regarding: Studies Performed, Diagnosis, Need For Followup, Rx Given - Disposition Referrals: Faisal Bell MD [Primary Care Provider] - Disposition: Routine/Home Disposition Time: 05:41 Condition: IMPROVED Prescriptions: Famotidine [Pepcid] 20 mg PO BID #14 tab Ondansetron ODT [Zofran ODT] 4 mg PO Q8 PRN #10 odt PRN Reason: Nausea/Vomiting Instructions: Gastroenteritis (ED) Forms: [employer] ([place]ian)
[2019-02-11 03:46] LABS: BASO % 0.1 % (0.0-2.0); EOS % 0.4 % (0.0-4.0); HEMOGLOBIN 12.4 g/dL (12.0-16.0); LYMPH % 7.4 % (20.0-40.0); MEAN CELL VOLUME 89.4 fl (81.0-99.0); MEAN CORPUSCULAR HEMOGLOBIN 30.1 pg (27.0-31.0); MEAN CORPUSCULAR HGB CONC 33.7 g/dL (33.0-37.0); MONO # 1.3 K/uL (0.0-0.8); MONO % 10.4 % (0.0-10.0); NEUT # 10.6 K/uL (1.8-7.0); NEUT % 81.7 % (50.0-75.0); NRBC % 0.1 % (0.0-0.0); PLATELET COUNT 266 K/uL (130-400); RBC 4.12 Mil/uL (3.80-5.20); RED CELL DISTRIBUTION WIDTH 12.4 % (11.5-14.5); WHITE BLOOD COUNT 12.9 K/uL (4.8-10.8)
[2019-02-11 04:06] LABS: ALB/GLOB RATIO 1.3 (1.0-2.1); ALBUMIN 4.4 g/dL (3.5-5.0); ALT/SGPT 32 U/L (9-52); AST/SGOT 31 U/L (14-36); BLOOD UREA NITROGEN 15 mg/dl (7-17); CALCIUM 9.4 mg/dL (8.4-10.2); GFR NON-AFRICAN AMERICAN > 60; LIPASE 63 U/L (23-300)
[2019-02-11 04:26] LABS: BANDS 2 % (0-2); LYMPHOCYTE 8 % (20-50); MONOCYTE 11 % (0-10); NEUTROPHIL 79 % (42-75); PLATELET ESTIMATE NORMAL (NORMAL); TOTAL CELLS COUNTED 100
[2019-02-11 05:49] VITALS: BP 115/63; PULSE 75; TEMP 98.3
[2019-02-11 06:37] LABS: BARBITURATES, UR NEGATIVE (NEGATIVE); BENZODIAZEPINES, UR NEGATIVE (NEGATIVE); OPIATES, UR NEGATIVE (NEGATIVE); PHENCYCLIDINE, UR NEGATIVE (NEGATIVE)
== END 2019-02-11 06:19 | disposition home or self-care (01) ==
LOC: H.ER 01:54
DX: K52.9 Noninfective gastroenteritis and colitis, unspecified (principal)
CPT/HCPCS: 80053; 81025; 83690; 85025; 96361; 96374; 96375; 99283; G0480; J2405; J7030

== ENCOUNTER 2019-02-28 21:29 | Emergency (ER) | payer SELFPAY ==
[2019-02-28 21:30] VITALS: BMI 22.3
[2019-02-28 22:40] VITALS: BP 114/73; PULSE 86; RESP 16; TEMP 98.3; O2SAT 95
--- NOTE | 2019-02-28 23:13 | ED PDOC ---
HPI: Skin/Bite Injury Time Seen by Provider: 02/28/19 22:46 Chief Complaint (Nursing): Abnormal Skin Integrity History Per: Patient History/Exam Limitations: no limitations Onset/Duration Of Symptoms: Days Additional Complaint(s): 29 yo F with h/o asthma present with a rash for 2-3 days that started on her upper chest and spreading to shoulders. She reports it is itchy. She also notes of having seasonal allergies this time of year and using her inhaler as needed with relief so she has had nasal congestion. She has not taken anything for the rash. She notes she did start using a new soap. Her friend is her with her with the same rash. Pt denies lip or tongue swelling, fever, chest pain, difficulty breathing. Past Medical History Reviewed: Historical Data, Nursing Documentation, Vital Signs Vital Signs: Last Vital Signs Temp 98.3 F 02/28/19 22:38 Pulse 86 02/28/19 22:38 Resp 16 02/28/19 22:38 BP 114/73 02/28/19 22:38 Pulse Ox 95 02/28/19 22:38 - Medical History PMH: Anxiety, Asthma, Bronchitis, Pneumonia Denies: Diabetes, Hepatitis, HIV, HTN, Chronic Kidney Disease, Seizures, Sexually Transmitted Disease - Surgical History Surgical History: Appendectomy (2005) - Family History Family History: States: Unknown Family Hx - Immunization History Hx Tetanus Toxoid Vaccination: (UTD) Hx Influenza Vaccination: No Hx Pneumococcal Vaccination: No - Home Medications Home Medications: Ambulatory Orders Medication Instructions Recorded Albuterol HFA [Ventolin HFA 90 2 puff IH Q4 PRN #1 inh 05/02/18 mcg/actuation (8 g)] ALPRAZolam [Xanax] 0.25 mg PO HS #5 tab 07/17/18 Famotidine [Pepcid] 20 mg PO BID #14 tab 02/11/19 Ondansetron ODT [Zofran ODT] 4 mg PO Q8 PRN #10 odt 02/11/19 Cetirizine HCl [Zyrtec] 10 mg PO DAILY #30 capsule 02/28/19 Fluticasone Nasal [Flonase] 1 spr NS Q6 PRN #1 bottle 02/28/19 Hydrocortisone 1% Oint [Cortizone 1 unit TP Q4 PRN #1 tube 02/28/19 1% Oint] - Allergies Allergies/Adverse Reactions: Allergies Allergy/AdvReac Type Severity Reaction Status Date / Time No Known Allergies Allergy Verified 02/28/19 22:40 Review of Systems Constitutional: Negative for: Fever, Weakness, Malaise Cardiovascular: Negative for: Chest Pain Respiratory: Positive for: Cough. Negative for: Shortness of Breath, Hemoptysis Skin: Positive for: Rash Physical Exam - Reviewed Nursing Documentation Reviewed: Yes Vital Signs Reviewed: Yes - Physical Exam Comments: GENERALIZED APPEARANCE: Patient is AAO x 3, in no acute distress. SKIN: Warm, dry; (-) cyanosis. Rash, erythematous hive like rash to upper chest, no vesicles, no signs of infection, spares palms and soles, (-) petechiae. No evidence of suppurativeinfection. ENMT: (-) mucous membrane involvement. (+)audible nasal congestion (-)rash in oral mucosa Airway patent: (-) stridor, (-) hoarseness. (-)lip or tongue swelling LYMPHATIC: (-) lymphangitis. CHEST AND RESPIRATORY: (-) rales, (-) rhonchi, (-) wheezes; breath sounds equalbilaterally. - ECG O2 Sat by Pulse Oximetry: 95 Medical Decision Making Medical Decision Making: initial impression - allergic rash no lip or tongue swelling, no difficulty breathing, no fever, spares palms or soles Discussed with pt that possibly due to new soap being used, advised to stop, will give hydrocortisone cream for rash and meds for seasonal allergies Discussed results, diagnosis, treatment, return precautions and f/u with pt who is understanding, in agreement and stable for dc Disposition - Clinical Impression Clinical Impression: Rash and nonspecific skin eruption, Rhinitis, allergic, Allergic dermatitis - Patient ED Disposition Is Patient to be Admitted: No Counseled Patient/Family Regarding: Studies Performed, Diagnosis, Need For Followup, Rx Given - Disposition Referrals: Faisal Bell MD [Staff Provider] - Disposition: Routine/Home Disposition Time: 23:17 Condition: STABLE Additional Instructions: Take medications as prescribed, Stop using soap. Return to ED for new or worsening symptoms, fever, chest pain, lip or tongue swelling. Follow up with your doctor. Thank you for letting us take care of you today. The emergency medical care you received today was directed at your acute symptoms. If you were prescribed any medication, please fill it and take as directed. It may take several days for your symptoms to resolve. Return to the Emergency Department if your symptoms worsen, do not improve, or if you have any other problems. Please contact your doctor in 2 days for re-evaluation and follow up / or call one of the physicians/clinics you have been referred to that are listed on the Patient Visit Information form that is included in your discharge packet. Bring any paperwork you were given at discharge with you along with any medications you are taking to your follow up visit. Our treatment cannot replace ongoing medical care by a primary care provider (PCP) outside of the emergency department. Prescriptions: Cetirizine HCl [Zyrtec] 10 mg PO DAILY #30 capsule Fluticasone Nasal [Flonase] 1 spr NS Q6 PRN #1 bottle PRN Reason: Nasal Congestion Hydrocortisone 1% Oint [Cortizone 1% Oint] 1 unit TP Q4 PRN #1 tube PRN Reason: Itching / Pruritus Instructions: Seasonal Allergies in Adults, Contact Dermatitis (DC), Skin Rash, Topical Corticosteroid Medicines Forms: [employer] (Wolof) Print Language: INDONESIAN - POA Present On Arrival: None
== END 2019-02-28 23:35 | disposition home or self-care (01) ==
LOC: H.ER 21:29
DX: R21 Rash and other nonspecific skin eruption (principal); J31.0 Chronic rhinitis; L23.9 Allergic contact dermatitis, unspecified cause; J45.909 Unspecified asthma, uncomplicated